=== PATIENT | male | born 1985 | race Caucasian/White ===

== ENCOUNTER 2020-01-24 14:34 | Emergency (ER) | payer MEDICAID ==
[~2020-01-24] VITALS: Ht 182.9 cm; Wt 74.8 kg
--- NOTE | 2020-01-24 14:55 | NUR ---
ED Nurse Note: Patient was BIB [employer] from the street. Per rescue patient was running the street naked . per patient he did meth this morning on arrival he resstless, combative, AAO x1, VSS at this time.
[2020-01-24 15:10] VITALS: BP 140/80
--- NOTE | 2020-01-24 15:15 | NUR ---
ED Nurse Note: Patient resting in the bed, calm, AAO x2, VSS art this time, still a little bit confused, able to folow comands.
--- NOTE | 2020-01-24 15:31 | NUR ---
PATIENT WAS BROUGHT IN BY MEGAN YAN BY OFFICER MIGUE [id number] AND OFFICER [id number]
[2020-01-24] MEDS ORDERED: LORazepam Inj 2mg/ml 1ml IM ONE (15:45)
[2020-01-24] MEDS ORDERED: Haloperidol 5mg/ml Inj IM ONE (15:45)
[2020-01-24 16:51] LABS: HEMATOCRIT 33.1 % (42.0-52.0); HEMOGLOBIN 10.9 G/DL (14.2-18.0); MEAN CORPUSCULAR VOLUME 101 FL (80-99); PLATELET COUNT 108 K/UL (150-450); RED BLOOD COUNT 3.28 M/UL (4.70-6.10); RED CELL DISTRIBUTION WIDTH 12.9 % (11.6-14.8)
[2020-01-24 17:07] LABS: ANION GAP 10 mmol/L (5-15); BLOOD UREA NITROGEN 22 mg/dL (7-18); CALCIUM 8.9 MG/DL (8.5-10.1); CARBON DIOXIDE 25 MMOL/L (21-32); CHLORIDE 101 MMOL/L (98-107); CREATININE 0.9 MG/DL (0.55-1.30); POTASSIUM 3.8 MMOL/L (3.5-5.1); SODIUM 136 MMOL/L (136-145)
[2020-01-24 17:11] LABS: ALANINE AMINOTRANSFERASE 19 U/L (12-78); ALBUMIN 3.5 G/DL (3.4-5.0); ALBUMIN/GLOBULIN RATIO 1.2 (1.0-2.7); ALKALINE PHOSPHATASE 69 U/L (46-116); ASPARTATE AMINO TRANSFERASE 50 U/L (15-37); BILIRUBIN,TOTAL 0.6 MG/DL (0.2-1.0)
--- NOTE | 2020-01-24 17:23 | Emergency Room Report ---
History of Present Illness General Chief Complaint: Altered Mental Status Source: Patient Present Illness HPI 34-year-old male presents the ED for behavioral evaluation. Brought in by EMS from Street. Per [employer] patient running through the street naked. Agitated and combative. Admitted to meth use. Denies hearing voices. Denies SI. Denies pain. No other aggravating relieving factors. Denies any other associated symptoms Allergies: Coded Allergies: UNABLE TO ASSESS (Unverified , 01/24/20) COVID-19 Screening Contact w/high risk pt: No Experienced COVID-19 symptoms?: No COVID-19 Testing performed MEDICAL CLAIMS ANALYST: No Patient History Past Medical History: none Past Surgical History: none Pertinent Family History: none Social History: Reports: drug use; Denies: smoking, alcohol use Immunizations: UTD Reviewed Nursing Documentation: PMH: Agreed; PSxH: Agreed Review of Systems All Other Systems: negative except mentioned in HPI Physical Exam Vital Signs Date Time Temp Pulse Resp B/P (MAP) Pulse Ox O2 Delivery O2 Flow Rate FiO2 01/24/20 14:44 97.3 98 16 140/80 (100) 98 Room Air Sp02 EP Interpretation: reviewed, normal General Appearance: alert, other - agitated Head: normocephalic, atraumatic Eyes: bilateral eye normal inspection, bilateral eye PERRL ENT: hearing grossly normal, normal pharynx, no angioedema, normal voice Neck: full range of motion, supple/symm/no masses Respiratory: chest non-tender, lungs clear, normal breath sounds, speaking full sentences Cardiovascular #1: regular rate, rhythm, no edema Cardiovascular #2: 2+ carotid (R), 2+ carotid (L), 2+ radial (R), 2+ radial (L), 2+ dorsalis pedis (R), 2+ dorsalis pedis (L) Gastrointestinal: normal bowel sounds, non tender, soft, non-distended, no guarding, no rebound Rectal: deferred Genitourinary: normal inspection, no CVA tenderness Musculoskeletal: back normal, normal range of motion, gait/station normal, non- tender Neurologic: alert, motor strength/tone normal, oriented x3, sensory intact, responsive, speech normal Psychiatric: anxious, other - agitated Reflexes: 3+ bicep (R), 3+ bicep (L), 3+ tricep (R), 3+ tricep (L), 3+ knee (R), 3+ knee (L) Skin: no rash Lymphatic: no adenopathy Procedures Critical Care Time Critical Care Time i. I feel this is a highly complex case requiring extensive working including EKG/Rhythm strip, Xray/CT/US, Blood/urine lab work, repeat exams while in ED, and administration of strong opiates/narcotics for pain control, admission to hospital or close patient follow up. Total time: 30 min bedside evaluation and treatment excludes procedures (EKG). Reason for critical care: AMS, agitated Possible complications: hypotension, hypertension, [place], shock, arrhythmias, metabolic acidosis, end organ damage, respiratory failure. Interventions: labs, haldol/ativan, reevaluation Course: Presenting agitated and screaming. History of methamphetamine use. No SI. Patient given Haldol/Ativan. Restraints applied. Patient improved after observation. Labs unremarkable. Consultations: nursing staff, EMS, family Performed by: Dr Gutierrez Tolerated well condition = stable j. because of unstable vital signs this patient had a condition that could potentially threaten life or limb. I feel this is a critical patient who required my full attention while patient was considered critical. Total Critical Care Time excluding procedures was greater than 35 minutes Medical Decision Making Restraint Attestation I, Jose Gutierrez MD, have personally evaluated this patient. Laboratory tests have been reviewed and addressed accordingly. The patient is deemed to present a danger to themselves and/or others. This is based on the exam, history (provided by patient, EMS/[employer] and/or family) and observed or reported behavior. Attempts for non-invasive measures have been considered and/or attempted, however, have been futile. It is in the best interest of the nursing staff, the patient, and others involved in this patient's care that behavioral restraints be applied. Patient evaluation reveals the following: Homeless Attestation I, The treating physician Dr. Gutierrez, have assessed and agrees that patient is medically stable for discharge to an outpatient disposition. Diagnostic Impression: Primary Impression: Altered mental status Qualified Codes: R41.82 - Altered mental status, unspecified Additional Impression: Substance abuse ER Course Hospital Course 34-year-old male presents to ED running through streets admitting to meth use. Differential diagnoses include: Psychosis, EtOH, drug abuse Clinical course patient placed on stretcher. On alarm security or surveillance monitor. After initial history and physical ordered labs, haldol/ativan. restraints applied Labs reviewed-electrolytes okay, no leukocytosis, hemoglobin/hematocrit stable Patient allowed to rest. Restraints removed. Is now alert oriented x3. Denies SI or HI. Discussed findings with patient. Homeless checklist completed. Safe for discharge for close outpatient follow-up. I will provide referrals i. I feel this is a highly complex case requiring extensive working including EKG/Rhythm strip, Xray/CT/US, Blood/urine lab work, repeat exams while in ED, and administration of strong opiates/narcotics for pain control, admission to hospital or close patient follow up. Diagnosis - AMS, substance abuse Stable and discharged to home. Followup with PMD. Return to ED if symptoms recur or worsen Laboratory Tests Test 01/24/20 16:32 White Blood Count 8.0 K/UL (4.8-10.8) Red Blood Count 3.28 M/UL (4.70-6.10) L Hemoglobin 10.9 G/DL (14.2-18.0) L Hematocrit 33.1 % (42.0-52.0) L Mean Corpuscular Volume 101 FL (80-99) H Mean Corpuscular Hemoglobin 33.3 PG (27.0-31.0) H Mean Corpuscular Hemoglobin Concent 33.1 G/DL (32.0-36.0) Red Cell Distribution Width 12.9 % (11.6-14.8) Platelet Count 108 K/UL (150-450) L Mean Platelet Volume 7.4 FL (6.5-10.1) Neutrophils (%) (Auto) % (45.0-75.0) Lymphocytes (%) (Auto) % (20.0-45.0) Monocytes (%) (Auto) % (1.0-10.0) Eosinophils (%) (Auto) % (0.0-3.0) Basophils (%) (Auto) % (0.0-2.0) Neutrophils % (Manual) Pending Lymphocytes % (Manual) Pending Platelet Estimate Pending Platelet Morphology Pending Sodium Level 136 MMOL/L (136-145) Potassium Level 3.8 MMOL/L (3.5-5.1) Chloride Level 101 MMOL/L (98-107) Carbon Dioxide Level 25 MMOL/L (21-32) Anion Gap 10 mmol/L (5-15) Blood Urea Nitrogen 22 mg/dL (7-18) H Creatinine 0.9 MG/DL (0.55-1.30) Estimat Glomerular Filtration Rate > 60 mL/min (>60) Glucose Level 111 MG/DL (74-106) H Calcium Level 8.9 MG/DL (8.5-10.1) Total Bilirubin 0.6 MG/DL (0.2-1.0) Aspartate Amino Transf (AST/SGOT) 50 U/L (15-37) H Alanine Aminotransferase (ALT/SGPT) 19 U/L (12-78) Alkaline Phosphatase 69 U/L (46-116) Total Protein 6.3 G/DL (6.4-8.2) L Albumin 3.5 G/DL (3.4-5.0) Globulin 2.8 g/dL Albumin/Globulin Ratio 1.2 (1.0-2.7) Salicylates Level 2.3 ug/mL (2.8-20) L Acetaminophen Level < 2 MCG/ML (10-30) L Serum Alcohol < 3 mg/dL Last Vital Signs Date Time Temp Pulse Resp B/P (MAP) Pulse Ox O2 Delivery O2 Flow Rate FiO2 01/24/20 16:35 98 24 144/98 98 01/24/20 15:10 Room Air 01/24/20 15:10 97.3 Status: improved Disposition: OTH-HOMELESS Condition: Stable Referrals: NOT CHOSEN IPA/,REFERRING (PCP) Jose Gutierrez MD Jan 24, 2020 17:23
--- NOTE | 2020-01-24 17:45 | NUR ---
ED Nurse Note: patient's restrains were DC. Patient calm, and cooperative, VSS at this time.
--- NOTE | 2020-01-24 18:15 | NUR ---
ED Nurse Note: sandwich and juices were provided
--- NOTE | 2020-01-24 19:50 | NUR ---
ED Nurse Note: Recieved report from LIBERTAD Lechuga to resume care, pt in room awake, alert and oriented x 4, ambuating from bathroom, pt is waiting to be discharged, needs clothing, given clothes, refused sandwich or juice, denies being homeless, suicidal or homicidal, is calm and cooperative, denies pain, nad noted while preparing for d/c to home.
[2020-01-24 20:30] VITALS: BP 149/88
[2020-01-24 20:45] VITALS: BP 149/88
--- NOTE | 2020-01-24 20:45 | NUR ---
ER DISCHARGE NOTE: Patient is cleared to be discharged per ERMD, pt is aox4, on room air, with stable vital signs. pt was given dc and prescription instructions, pt was able to verbalize understanding, pt id band and iv site removed without complications. pt is able to ambulate with steady gait. pt took all belongings.
== END 2020-01-24 20:45 | disposition other institution (70) ==
LOC: EDBD 14:34 → EMR 15:00
DX: F19.10 Other psychoactive substance abuse, uncomplicated (principal); R41.82 Altered mental status, unspecified
CPT/HCPCS: 36415; 80053; 85007; 85025; 96372; G0480; G0481; J1630; Z7502; 99291